=== PATIENT | male | born 1960 | race Caucasian/White ===

== ENCOUNTER 2017-05-15 06:33 | Day surgery (SDC) | payer OTHER ==
[2017-05-12 17:17] LABS: HEMATOCRIT 40.8 % (40.0-51.0); HEMOGLOBIN 13.9 g/dL (13.6-17.8)
[2017-05-12 17:33] LABS: A/G RATIO 1.3 (0.7-1.9); ALBUMIN 3.9 G/DL (3.5-5.0); ALKALINE PHOSPHATASE 57 U/L (45-117); BUN (BLOOD UREA NITROGEN) 14 MG/DL (6-23); CALCIUM, SERUM 9.4 MG/DL (8.5-10.4); CHLORIDE, SERUM 104 MMOL/L (96-112); CO2 (CARBON DIOXIDE) 29 MMOL/L (24-34); CREATININE 0.98 MG/DL (0.70-1.30); GFR AFRICAN AMERICAN 99 ML/MIN (>=60); GFR NON AFRICAN AMERICAN 86 ML/MIN (>=60); GLUCOSE, SERUM 91 MG/DL (60-99); POTASSIUM, SERUM 3.7 MMOL/L (3.5-5.3); SGOT(AST) 30 U/L (5-40); SGPT(ALT) 33 U/L (5-65); SODIUM, SERUM 140 MMOL/L (135-148); TOTAL BILIRUBIN 0.4 MG/DL (0-1.2); TOTAL PROTEIN 6.9 G/DL (6.0-8.5)
[~2017-05-15] VITALS: Ht 185.4 cm; Wt 88.9 kg
--- NOTE | ~2017-05-15 | OP ---
Record Of Operation [facility] [address] [place]. [address] NAME: MOLLY COLEMAN : 60 STATUS : [facility]#: [id number] AGE: 56 ADM/REG DATE : 05/15/17 MR#: [id number] REPORT SERV DATE: 05/19/17 DICTATED BY: SANTOS FORD DATE: 05/18/17 REPORT STATUS : Draft TRANSCRIBED BY: MODL DATE: 05/18/17 DATE OF PROCEDURE: 05/15/2017 PREOPERATIVE DIAGNOSIS: Right inguinal hernia. POSTOPERATIVE DIAGNOSIS: Bilateral inguinal hernia. PROCEDURE: Laparoscopic reduction and mesh patch repair of bilateral inguinal hernia. DESCRIPTION OF PROCEDURE: The patient was brought to the operating suite, placed in the supine position, underwent satisfactory general endotracheal anesthesia without incident. The skin of the abdomen was scrubbed, prepped, and draped in the usual sterile fashion. 0.5% Marcaine with epinephrine was utilized as supplemental local anesthesia. Initially, an infraumbilical incision was performed dissecting through the skin and subcutaneous tissues of the umbilical fascia. Inferolateral retraction the left exposed the medial aspect of the left anterior rectus sheath. This was incised longitudinally and the medial aspect of the left rectus muscle was identified and retracted laterally. A preperitoneal dissection balloon was inserted posterior to the left rectus sheath to the level of pubic tubercle and insufflated under direct camera visualization creating a preperitoneal dissection space bilaterally. This balloon was then replaced with a structural balloon, and CO2 was insufflated into the preperitoneal space for pressures of 15 mmHg throughout the case. Two additional 5 mm trocars were placed in the infraumbilical midline under direct visualization. Completion of preperitoneal dissection was performed bilaterally skeletonizing Hesselbach's triangle, inferior epigastric vessels and the cord structures as well as internal ring. On the right, there was a very large direct defect with incarcerated preperitoneal fat, which was reduced. On the left, there was a small indirect sac. Two separately placed pieces of Bard 3DMax mesh size large, oriented left and right were utilized for the repair. They were both placed in local anesthesia, rolled up and placed in the preperitoneal space, allowed to unroll over the inguinal canals bilaterally. Multiple firings of the helical tacker were used to secure the mesh in position covering Hesselbach's triangle, the inferior epigastric vessels, and the internal ring, allowing the cord structures to egress below the lower edge of the mesh. After assurance of hemostasis, the preperitoneal space was allowed to collapse and CO2 was milked from the preperitoneal space after removal of the trocars. No muscular bleeding was noted. The left anterior rectus sheath was closed with [id number] suture of 0 Vicryl, subcutaneous tissue closed at all sites with interrupted 4-0 Vicryl, running subcuticular stitch 4-0 Vicryl for the skin. Dermabond skin adhesive placed. Record Of Operation [facility] [address] [place]. [address] NAME: MOLLY COLEMAN : 60 STATUS : [facility]#: [id number] AGE: 56 ADM/REG DATE : 05/15/17 MR#: [id number] REPORT SERV DATE: 05/19/17 DICTATED BY: SANTOS FORD DATE: 05/18/17 REPORT STATUS : Draft TRANSCRIBED BY: PAVAN DATE: 05/18/17 The patient tolerated the procedure well and was returned to PACU in stable condition. At the termination of procedure, sponge, needle, lap, and instrument counts were correct x3. ESTIMATED BLOOD LOSS: Negligible. CARRINGTON/PAVAN Santos Ford M.D. / [id number] CC: Ketan Cano M.D.
[~2017-05-15 06:33] MED LIST: LIPITOR10 PO; LOTE20 PO; NORV5 PO
== END 2017-05-15 14:35 | disposition home or self-care (01) ==
LOC: SDC 06:33
PROVIDERS: Specialist
PROC: 0YUA4JZ Supplement Bilateral Inguinal Region with Synthetic Substitute, Percutaneous Endoscopic Approach (ICD-10-PCS; principal; 2017-05-15 07:45)
DX: K40.20 Bilateral inguinal hernia, without obstruction or gangrene, not specified as recurrent (principal); E78.5 Hyperlipidemia, unspecified; I10 Essential (primary) hypertension; E78.00 Pure hypercholesterolemia, unspecified; I34.1 Nonrheumatic mitral (valve) prolapse; Z79.899 Other long term (current) drug therapy; Z98.890 Other specified postprocedural states
CPT/HCPCS: 80053; 85014; 85018; 93005; C1726; C1727; C1781; J0690; J1885; J2250; J2405; J2710; J3010